=== PATIENT | male | born 1955 | race Caucasian/White ===

== ENCOUNTER → 2017-04-29 | Outpatient (CLI) | payer BC, OTHER ==
[~2017-04-29] MED LIST: AMLO5TAB2 PO; ASPI-515 PO; GARL1TAB PO; GLIP5TAB10 PO; LISI1TAB3 PO; METF500T4 PO; MULT-751 PO; PANT40TA5 PO; VIT1CAPS16 PO; VITAMIN E PO
[2017-04-29 12:33] LABS: ASPARTATE AMINO TRANSFERASE 24 U/L (15-37); BLOOD UREA NITROGEN 16 mg/dL (7-18)
== END | disposition home or self-care (01) ==
LOC: STAR 10:45
PROVIDERS: ATTEND Orthopaedic Surgery Orthopaedic Surgery of the Spine
DX: Z01.818 Encounter for other preprocedural examination (principal); M48.02 Spinal stenosis, cervical region; M50.30 Other cervical disc degeneration, unspecified cervical region; M62.81 Muscle weakness (generalized); N39.0 Urinary tract infection, site not specified; M47.896 Other spondylosis, lumbar region; E11.9 Type 2 diabetes mellitus without complications; I10 Essential (primary) hypertension
CPT/HCPCS: 36415; 71020; 80053; 81003; 85025; 93005

== ENCOUNTER 2017-05-06 08:11 | Inpatient (IN) | payer BC, OTHER ==
[~2017-05-06] VITALS: Ht 180.3 cm; Wt 80.5 kg
[~2017-05-06 08:11] MED LIST changes: +BACITRACIN OINT 500U/GM, 15 GM ONE; +BUPIVACAINE/PF-EPI 0.5% 1:200K ONE; +THROMBIN 5,000 UNIT VIAL TP ONE
[2017-05-06] MEDS ORDERED: MIDAZOLAM 1 MG/ML, 2ML ONE (08:20)
[2017-05-06] MEDS ORDERED: FENTANYL PF 250 MCG/5ML ONE (08:20)
[2017-05-06] MEDS ORDERED: LACTATED RINGERS 1,000 ML IV SCH (08:35)
[2017-05-06 08:39] VITALS: BP 141/76
[2017-05-06] MEDS ORDERED: ONDANSETRON 2MG/ML, 2ML ONE (09:29)
[2017-05-06] MEDS ORDERED: DEXAMETHASONE 4 MG/ML, 5ML ONE (09:29)
[2017-05-06] MEDS ORDERED: CEFAZOLIN 1,000 MG ONE (09:29)
[2017-05-06] MEDS ORDERED: PROPOFOL 10 MG/ML, 20ML ONE (09:29)
[2017-05-06] MEDS ORDERED: metFORMIN 500 MG TABLET PO SCH ×2 (09:30→21:00)
[2017-05-06] MEDS: CEFAZOLIN PMX 1GM/50ML 50 ML IVPB SCH ×2 (09:30→17:29)
[2017-05-06] MEDS ORDERED: MAGNESIUM HYDROXIDE 8%, 30ML UDC PO PRN (09:30)
[2017-05-06] MEDS ORDERED: PHARMACY MAY ADJ FOR RENAL FX MC PRN (09:30)
[2017-05-06] MEDS ORDERED: INSULIN REGULAR 100 UNITS/ML, 3ML VIAL SQ-INSULIN PRN (09:30)
[2017-05-06] MEDS ORDERED: OXYcodone/APAP 5/325MG TABLET PO PRN (09:30)
[2017-05-06] MEDS ORDERED: DIPHENHYDRAMINE 50 MG/ML, 1ML IVPush PRN (09:30)
[2017-05-06] MEDS ORDERED: morphine SULFATE 10 MG/ML, 1ML IVPush PRN (09:30)
[2017-05-06] MEDS ORDERED: METHOCARBAMOL 750 MG TABLET PO PRN (09:30)
[2017-05-06] MEDS ORDERED: PROMETHAZINE 25 MG/ML, 1ML IM PRN (09:30)
[2017-05-06] MEDS ORDERED: BISACODYL 10 MG SUPP PR PRN (09:30)
[2017-05-06] MEDS ORDERED: MEPERIDINE/PF 25MG/0.5ML IVPush PRN (10:30)
[2017-05-06] MEDS ORDERED: LABETALOL 5MG/ML, 20ML IV PRN (10:30)
[2017-05-06] MEDS ORDERED: ACETAMINOPHEN 325 MG TABLET PO PRN (10:30)
[2017-05-06] MEDS ORDERED: ONDANSETRON 2MG/ML, 2ML IVPush PRN (10:30)
[2017-05-06] MEDS ORDERED: hydrALAzine 20 MG/ML, 1ML IV PRN (10:30)
[2017-05-06] MEDS ORDERED: OXYcodone 5 MG/5 ML ORAL.SOL UDC PO PRN (10:30)
[2017-05-06] MEDS ORDERED: FENTANYL PF 100 MCG/2ML IV PRN (10:30)
[2017-05-06] MEDS ORDERED: FENTANYL PF 100 MCG/2ML ONE (12:09)
[2017-05-06] MEDS ORDERED: HYDROmorphone 2 MG/ML, 1ML ONE (12:09)
[2017-05-06] MEDS: HYDROmorphone 1 MG/ML, 1ML IV PRN ×2 (13:04→13:11)
[2017-05-06] MEDS: NS + 20MEQ KCL 1,000 ML IV SCH ×2 (13:19→22:50)
[2017-05-06 13:35] VITALS: BP 147/81
[2017-05-06] MEDS: [UNRECOGNIZED DRUG - REMARK] MC SCH ×2 (17:29→23:29)
[2017-05-06] MEDS: LISINOPRIL 10 MG TABLET PO SCH (17:32)
[2017-05-06] MEDS: HYDROcodone/APAP 5/325 TABLET PO PRN (17:36)
[2017-05-06] MEDS: ONDANSETRON 2MG/ML, 2ML IVPush PRN (18:07)
[2017-05-06 18:30] VITALS: BP 140/78
[2017-05-06 19:29] VITALS: BP 144/74
[2017-05-07 01:16] VITALS: BP 117/69
[2017-05-07] MEDS: HYDROcodone/APAP 5/325 TABLET PO PRN (03:28)
[2017-05-07] MEDS: ONDANSETRON 2MG/ML, 2ML IVPush PRN (03:33)
[2017-05-07 07:38] VITALS: BP 133/66
[2017-05-07] MEDS: LISINOPRIL 10 MG TABLET PO SCH (07:45)
[2017-05-07] MEDS ORDERED: metFORMIN 500 MG TABLET PO SCH (08:00)
[2017-05-07] MEDS: [UNRECOGNIZED DRUG - REMARK] MC SCH (08:00)
[2017-05-07] MEDS ORDERED: AMLODIPINE 5 MG TABLET PO SCH (09:00)
[2017-05-07] MEDS ORDERED: HYDROCHLOROTHIAZIDE 12.5 MG CAPSULE PO SCH (09:00)
[2017-05-07] MEDS ORDERED: PANTOPROZOLE 40MG TABLET PO SCH (09:00)
== END 2017-05-07 09:51 | disposition home or self-care (01) | DRG 472 ==
LOC: ORIP 08:11 → 4NOR 13:36
PROVIDERS: ADMIT Orthopaedic Surgery Orthopaedic Surgery of the Spine; ATTEND Orthopaedic Surgery Orthopaedic Surgery of the Spine
PROC: 0RB30ZZ Excision of Cervical Vertebral Disc, Open Approach (ICD-10-PCS; 2017-05-06)
PROC: 00NW0ZZ Release Cervical Spinal Cord, Open Approach (ICD-10-PCS; 2017-05-06)
PROC: 4A11X4G Monitoring of Peripheral Nervous Electrical Activity, Intraoperative, External Approach (ICD-10-PCS; 2017-05-06)
PROC: 0RG20A0 Fusion of 2 or more Cervical Vertebral Joints with Interbody Fusion Device, Anterior Approach, Anterior Column, Open Approach (ICD-10-PCS; principal; 2017-05-06 09:00)
DX: M48.02 Spinal stenosis, cervical region (principal); M50.022 Cervical disc disorder at C5-C6 level with myelopathy; M50.122 Cervical disc disorder at C5-C6 level with radiculopathy; E11.9 Type 2 diabetes mellitus without complications; Z85.828 Personal history of other malignant neoplasm of skin; Z72.89 Other problems related to lifestyle
CPT/HCPCS: 72040; 82962; 95938; 95941; C1713; J0690; J1100; J1170; J2250; J2405; J2704; J3010; J3480; J2270; J7120